=== PATIENT | male | born 1970 | race Caucasian/White ===

== ENCOUNTER 2016-03-07 13:31 | Emergency (ER) | payer MEDICARE, MEDICAID ==
[~2016-03-07] VITALS: Ht 165.1 cm; Wt 70.5 kg
[2016-03-07 13:36] VITALS: BP 139/100; PULSE 75; RESP 16; O2SAT 99
--- NOTE | 2016-03-07 13:42 | ED.REPORT ---
HPI-URI / Cough / Cold Date of Service Mar 07, 2016 ED Provider: History of Present Illness: started with a cold for a week gone for a few days, returned today. feels feverish, hot and cold. primary care is no one. sneezing, vomiting after eating this am feels dizzy Nursing Notes Stated Complaint: NAUSEA/LIGHT HEADED Chief Complaint: General Complaint Nursing Notes Reviewed: Yes Allergies: Coded Allergies: No Known Allergies (Unverified , 03/07/16) General Time Seen by MD: 13:42 Chief Complaint Other (vomiting after eating today) Hx Obtained From: Patient Onset Occurred: 2 days ago Symptom Duration: Since onset Past Medical History Past Medical History psorasis Denies: Asthma Denies: Kidney disease Past Surgical History denies Smoking History Former Smoker (quit 10 years ago) Social History drug use in the past drug of choice was thc Alcohol Use: Denies alcohol use Occupation single, lives by self, no work or school 03/07/2016 Ambulatory Status Independent Review of Systems Basic Review of Systems Cardiovascular: No chest pain, No dyspnea on exertion, No orthopnea, No parox noct dyspnea, No palpitations : No dysuria, No frequency Musculoskeletal: No extremity swelling, No extremity pain, Full range of motion , Joints NL Hematologic: No bleeding, No bruising Endocrine: No cold intolerance, No heat intolerance, No weight gain, No weight loss Psychiatric: Normal thought content Physical Exam Initial Vital Signs Vital Signs (First) Date Time Temp Pulse Resp B/P Pulse Ox O2 Delivery O2 Flow Rate FiO2 03/07/16 13:36 36.7 75 16 139/100 99 Room Air Initial VS: Reviewed, Vital signs normal Head / Eyes: Atraumatic, Normocephalic, PERRL Neck: Supple, Non-tender, Full range of motion Cardiovascular: Regular rate & rhythm, Heart sounds normal, Intact distal pulses Abdomen / GI: Soft, Non-tender, No guarding, No rebound, No distention Back: No CVA tenderness Lymphatic: No lymphadenopathy Extremities: Vascular intact, Neuro intact, No swelling, No tenderness Skin: Warm, Dry, No cyanosis Neurologic: Alert, Oriented, Nonfocal Psychiatric: Mood/affect normal, Behavior normal, Normal thought content General/Constitutional: Awake, Alert, No acute distress, Well appearing, Well developed, Well hydrated ENT: Atraumatic, Airway patent, Mucous membranes moist, Pharynx NL Nose: Positive: Rhinorrhea Respiratory / Chest: Atraumatic, Breath sounds NL, Breath sounds = bilat, No respiratory distress Cardiovascular: Heart rate NL, Regular rhythm, Heart sounds NL, No gallop Interpretation & Diagnostics Lab Results Interpretation Result Diagram: 03/07/16 1428 03/07/16 1428 Test 03/07/16 14:28 03/07/16 16:36 White Blood Count 9.5th/mm3 (3.8-10.1) Red Blood Count 5.43mil/mm3 (4.40-5.80) Hemoglobin 14.6g/dL (13.8-17.2) Hematocrit 44.6% (41.0-50.0) Mean Corpuscular Volume 82.1fL (81-100) Mean Corpuscular Hemoglobin 26.9pg (27.0-35.0) Mean Corpuscular Hemoglobin Concent 32.7% (32.0-37.0) Red Cell Distribution Width 15.4% (12.3-15.4) Platelet Count 451bil/L (150-400) Neutrophils (%) (Auto) 71.3% (40-74) Lymphocytes (%) (Auto) 19.2% (14-46) Monocytes (%) (Auto) 7.0% (4-12) Eosinophils (%) (Auto) 2.0% (0-5) Basophils (%) (Auto) 0.3% (0-3) Sodium Level 138mEq/L (134-144) Potassium Level 4.0mEq/L (3.5-5.2) Chloride Level 100mEq/L (97-108) Carbon Dioxide Level 22mmol/L (18-29) Blood Urea Nitrogen 11mg/dL (6-24) Creatinine 0.69mg/dL (0.76-1.27) Estimat Glomerular Filtration Rate 132mL/min (>59) Glucose Level 138mg/dL (60-99) Calcium Level 9.2mg/dL (8.5-10.1) Total Bilirubin 0.3mg/dL (0.0-1.2) Aspartate Amino Transf (AST/SGOT) 23U/L (0-50) Alanine Aminotransferase (ALT/SGPT) 34U/L (0-44) Alkaline Phosphatase 82U/L (25-150) Total Protein 8.2g/dL (6.4-8.4) Albumin 4.0g/dL (3.4-5.0) Hold Urine Received (Received) X-Ray Chest Interpretation Chest Xray Interpretation: Surgical changes and devices: None. Lungs and pleura: No pleural effusions or pneumothorax. Lungs are clear. Mediastinum: Mediastinal contours are normal. Heart size is normal. Bones and chest wall: No suspicious bony abnormalities. Soft tissues appear unremarkable. IMPRESSION: No acute cardiopulmonary disease process. Dictated by: Selene Galo MD, PhD on 03/07/2016 at 14:59 Discharge & Departure Impression: Primary Impression: Dizzy Additional Impression: URI (upper respiratory infection) URI type: unspecified viral URI Qualified Code: J06.9 - Acute upper respiratory infection, unspecified Disposition: Home Patient Instructions: Upper Respiratory Infection (ED) Additional Instructions: The chest x-ray is normal. Your labs are normal. The urine is normal. You had zofran and meclizine in the ER. You were able to keep down the apple juice. You are being provided a prescription for zofran and meclizine. Please establish in primary care. Return with any concerns. Enjoy the new year and get healthy! Referrals: Anahi Cook MD (PCP) Duncan Mchugh MD (Family) EDSupervising Provider for APC: Lacy Preciado MD copies to: Anahi Cook MD, Sue ARNP Mar 07, 2016 13:42
[2016-03-07 14:14] VITALS: BP 151/91; PULSE 69
[2016-03-07 14:16] VITALS: BP 132/88; PULSE 71
[2016-03-07 14:18] VITALS: BP 134/95; PULSE 78
--- NOTE | 2016-03-07 15:00 | DRSVH ---
PROCEDURE: X-RAY CHEST, TWO VIEWS ([id number]) INDICATIONS: cough TECHNIQUE: 2 views of the chest were acquired. COMPARISON: None. FINDINGS: Surgical changes and devices: None. Lungs and pleura: No pleural effusions or pneumothorax. Lungs are clear. Mediastinum: Mediastinal contours are normal. Heart size is normal. Bones and chest wall: No suspicious bony abnormalities. Soft tissues appear unremarkable. IMPRESSION: No acute cardiopulmonary disease process. Dictated by: Selene Galo MD, PhD on 03/07/2016 at 14:59 Approved by: Selene Galo MD, PhD on 03/07/2016 at 14:59
[2016-03-07 15:01] LABS: BASOPHILS % (AUTO) 0.3 % (0-3); Mean Corpuscular Hemoglobin 26.9 pg (27.0-35.0); Mean Corpuscular Volume 82.1 fL (81-100); NEUTROPHILS % (AUTO) 71.3 % (40-74); Platelet Count 451 bil/L (150-400)
[2016-03-07 16:20] VITALS: BP 138/89; PULSE 67; O2SAT 98
[2016-03-07 16:36] VITALS: BP 138/89; PULSE 67; RESP 16; O2SAT 98
== END 2016-03-07 16:25 | disposition home or self-care (01) ==
LOC: SED 13:31
DX: R42 Dizziness and giddiness (principal); J06.9 Acute upper respiratory infection, unspecified; R11.10 Vomiting, unspecified; Z87.891 Personal history of nicotine dependence